=== PATIENT | female | born 2000 | race Two or more races ===

== ENCOUNTER 2025-07-11 22:33 | Emergency (ER) | payer MEDICAID, OTHER ==
[~2025-07-11] VITALS: Ht 157.5 cm; Wt 46.3 kg
[2025-07-11 22:37] VITALS: BP 134/99; PULSE 73; RESP 16; TEMP 98.1; O2SAT 97
== END 2025-07-12 02:55 | disposition left against medical advice (07) ==
LOC: ER 22:33
DX: S61.253A Open bite of left middle finger without damage to nail, initial encounter (principal); Z53.21 Procedure and treatment not carried out due to patient leaving prior to being seen by health care provider; W50.3XXA Accidental bite by another person, initial encounter; Y93.89 Activity, other specified; Y92.89 Other specified places as the place of occurrence of the external cause; Y99.8 Other external cause status